=== PATIENT | male | born 1970 | race Caucasian/White ===

== ENCOUNTER 2017-12-01 11:29 | Emergency (ER) | payer BC ==
[2017-12-01] MEDS ORDERED: Sodium Chloride 0.9% 10 ML Syringe FLUSH PRN (11:50)
[2017-12-01] MEDS ORDERED: Morphine 2 MG/ML Syringe IVPUSH ONE (11:51)
[2017-12-01] MEDS ORDERED: Ketorolac 15 MG/ML SDV IVPUSH ONE (11:51)
[2017-12-01] MEDS ORDERED: Sodium Chloride 0.9% 1,000 ML IV ONE (11:51)
[2017-12-01] MEDS ORDERED: LORazepam 2 MG/ML SDV IVPUSH ONE (11:52)
[2017-12-01] MEDS ORDERED: Ondansetron 4 MG/2 ML SDV IVPUSH ONE (11:53)
[2017-12-01] MEDS ORDERED: methylPREDNISolone Sodium Succinate 125 MG/2 ML SDV IVPUSH ONE (12:24)
[2017-12-01 12:43] LABS: CHLORIDE,CL 106 mmol/L (98-107); SODIUM,NA 142 mmol/L (136-145)
[2017-12-01] MEDS: Lidocaine 2% 10 ML Amp INJECT ONE ×2 (12:57→13:24)
[2017-12-01] MEDS ORDERED: methylPREDNISolone Sodium Succinate 40 MG/1 ML SDV IM ONE (13:13)
[2017-12-01] MEDS ORDERED: Bupivacaine 0.5% 30 ML SDV INJECT PRN (13:16)
[2017-12-01] MEDS ORDERED: Take Home: Cyclobenzaprine 10 MG Tab, 4 Tab Pack PO ONE (15:14)
--- NOTE | 2017-12-01 15:24 | EDM.PDOC ---
ED HPI GENERAL MEDICAL PROBLEM - General Chief Complaint: Back Pain or Injury Stated Complaint: HURT BACK Time Seen by Provider: 12/01/17 11:49 Source of Information: Reports: Patient History Limitations: Reports: No Limitations - History of Present Illness INITIAL COMMENTS - FREE TEXT/NARRATIVE: Patient reports back and shoulder pain radiating down his right arm that started on Saturday night. He does do some work with ranching and farming, though he does not remember doing anything in particular that suddenly caused pain or injury. He has been treating with ibuprofen and tylenol but today the pain and spasms were not tolerable. No radiculopathy. No other complaints today. Denies chest pain, headache, shortness or breath, nausea or vomiting, abdominal pain or blood in urine or stool. Limited range of motion to the right shoulder. Severe spasming to the trapezius muscle Onset: Gradual Onset Date: 11/29/17 Duration: Getting Worse, Intermittent Location: Reports: Back, Upper Extremity, Right Quality: Reports: Ache, Sharp Severity: Severe Improves with: Reports: Heat Therapy Worsens with: Reports: Movement Associated Symptoms: Reports: No Other Symptoms Back/Neck Spasms Pain Score (Numeric/FACES): 8 - Related Data Allergies Allergy/AdvReac Type Severity Reaction Status Date / Time clindamycin Allergy Anaphylactic Verified 12/01/17 12:27 Shock Penicillins Allergy Anaphylactic Verified 12/01/17 12:27 Shock Home Meds: Home Meds Diazepam [Valium] 5 mg PO TID #10 tab 12/01/17 [Rx] Venlafaxine HCl [Venlafaxine ER] 37.5 mg PO DAILY 12/01/17 [History] Venlafaxine HCl [Venlafaxine ER] 75 mg PO DAILY 12/01/17 [History] ED ROS GENERAL - Review of Systems Review Of Systems: See Below Constitutional: Reports: No Symptoms HEENT: Reports: No Symptoms Respiratory: Reports: No Symptoms Cardiovascular: Reports: No Symptoms Endocrine: Reports: No Symptoms GI/Abdominal: Reports: No Symptoms : Reports: No Symptoms Musculoskeletal: Reports: Arm Pain, Back Pain, Hand Pain Skin: Reports: No Symptoms Neurological: Reports: No Symptoms Psychiatric: Reports: No Symptoms Hematologic/Lymphatic: Reports: No Symptoms Immunologic: Reports: No Symptoms ED EXAM, UPPER BACK/NECK PAIN - Physical Exam Exam: See Below Exam Limited By: No Limitations General Appearance: Alert, WD/WN, Moderate Distress Head Exam: Atraumatic, Normocephalic Cardiovascular/Respiratory: Regular Rate, Rhythm, No M/R/G, Normal Peripheral Pulses, No JVD, Normal Breath Sounds, No Respiratory Distress GI/Abdominal: Normal Bowel Sounds, Soft, Non-Tender, No Organomegaly, No Distention, No Abnormal Bruit, No Mass Extremities: No Pedal Edema, Normal Capillary Refill, Arm Pain (mid to upper back and arm painful. direct pressure to site increases the pain on palpation.) , Limited Range of Motion Neurologic: internal audit consultant II-XII nml As Tested, No Motor/Sensory Deficits, Alert, Normal Mood/Affect, Oriented x 3 Course - Vital Signs Last Recorded V/S: Last Vital Signs Temp 36.0 C 12/01/17 11:30 Pulse 111 H 12/01/17 11:30 Resp 16 12/01/17 11:30 BP 157/78 H 12/01/17 11:30 Pulse Ox 94 L 12/01/17 11:30 - Orders/Labs/Meds Orders: Active Orders 24 hr Category Date Time Status Shoulder Comp Rt [CR] Stat Exams 12/01/17 11:50 Taken Thoracic Spine 2V [CR] Stat Exams 12/01/17 11:50 Taken Saline Lock Insert [OM.PC] Routine Oth 12/01/17 11:50 Ordered Labs: Laboratory Tests 12/01/17 Range/Units 12:15 Sodium 142 (136-145) mmol/L Potassium 3.8 (3.5-5.1) mmol/L Chloride 106 (98-107) mmol/L Carbon Dioxide 25 (21-32) mmol/L Anion Gap 14.8 (10-20) mmol/L BUN 20 H (7-18) mg/dL Creatinine 1.3 (0.70-1.30) mg/dL Est Cr Clr Drug Dosing TNP Estimated GFR (MDRD) 60 Glucose 118 H (74-106) mg/dL Calcium 8.9 (8.5-10.1) mg/dL Corrected Calcium 8.82 (8.5-10.1) mg/dL Magnesium 2.3 (1.8-2.4) mg/dL Total Bilirubin 0.6 (0.2-1.0) mg/dL AST 21 (15-37) U/L ALT 40 (16-63) U/L Alkaline Phosphatase 81 (46-116) U/L Total Protein 7.5 (6.4-8.2) g/dL Albumin 4.1 (3.4-5.0) g/dL Globulin 3.4 Albumin/Globulin Ratio 1.21 Meds: Medications Discontinued Medications Generic Name Dose Route Start Last Admin Trade Name Freq PRN Reason Stop Dose Admin Bupivacaine HCl 30 ml 12/01/17 13:16 12/01/17 13:27 Marcaine 0.5% INJECT 30 ml ASDIRECTED PRN Administration Other Cyclobenzaprine HCl 1 packet 12/01/17 15:14 12/01/17 15:33 Take Home: Cyclobenzaprine 10 Mg, 4 Tab Pack PO 12/01/17 15:15 1 packet ONETIME ONE Administration Diazepam 5 mg 12/01/17 13:33 12/01/17 13:37 Valium IVPUSH 12/01/17 13:34 5 mg STAT ONE Administration Diazepam Confirm 12/01/17 15:32 12/01/17 15:33 Valium. Administered 12/01/17 15:33 25 mg Dose Administration 25 mg .ROUTE .STK-MED ONE Sodium Chloride 1,000 mls @ 999 mls/hr 12/01/17 11:51 12/01/17 12:08 Normal Saline IV 12/01/17 12:51 999 mls/hr ONETIME ONE Administration Ketorolac Tromethamine 15 mg 12/01/17 11:51 12/01/17 12:06 Toradol IVPUSH 12/01/17 11:52 15 mg ONETIME ONE Administration Lidocaine HCl 10 ml 12/01/17 12:25 12/01/17 13:24 Xylocaine-Mpf 2% (Sterile-Horace) INJECT 12/01/17 12:26 Not Given ONETIME ONE Lorazepam 1 mg 12/01/17 11:52 12/01/17 12:10 Ativan IVPUSH 12/01/17 11:53 1 mg ONETIME ONE Administration Methylprednisolone Sodium Succinate 125 mg 12/01/17 12:24 12/01/17 12:55 Solu-Medrol IVPUSH 12/01/17 12:25 125 mg ONETIME ONE Administration Methylprednisolone Sodium Succinate 40 mg 12/01/17 13:13 12/01/17 13:27 Solu-Medrol IM 12/01/17 13:14 40 mg ONETIME ONE Administration Morphine Sulfate 2 mg 12/01/17 11:51 12/01/17 12:08 Morphine IVPUSH 12/01/17 11:52 2 mg ONETIME ONE Administration Ondansetron HCl 4 mg 12/01/17 11:53 12/01/17 12:03 Zofran IVPUSH 12/01/17 11:54 4 mg ONETIME ONE Administration Sodium Chloride 10 ml 12/01/17 11:50 Saline Flush FLUSH ASDIRECTED PRN Keep Vein Open Departure - Departure Time of Disposition: 15:41 Disposition: Home, Self-Care 01 Condition: Good Clinical Impression: Muscle spasms of neck - Discharge Information Prescriptions: Diazepam [Valium] 5 mg PO TID #10 tab Instructions: Muscle Strain, Glpe-ed-Pdpb, Back Pain, Adult, [id number] Referrals: Mely Diaz MD [Primary Care Provider] - Forms: ED Department Discharge Additional Instructions: Stay well hydrated. Follow up in clinic with further spasms. I will give you some Valium and Flexeril to see which provides you more relief. Your labs were all within normal with the exception of higher glucose of 119 and a slightly elevated BUN As always call with any questions or concerns. - Problem List & Annotations (1) Muscle spasms of neck SNOMED Code(s): 126102633175 Code(s): M62.838 - OTHER MUSCLE SPASM Status: Acute Priority: Medium - Problem List Review Problem List Initiated/Reviewed/Updated: Yes - My Orders Last 24 Hours: My Active Orders 12/01/17 11:50 Shoulder Comp Rt [CR] Stat Thoracic Spine 2V [CR] Stat Saline Lock Insert [OM.PC] Routine - Assessment/Plan Last 24 Hours: My Active Orders 12/01/17 11:50 Shoulder Comp Rt [CR] Stat Thoracic Spine 2V [CR] Stat Saline Lock Insert [OM.PC] Routine Assessment:: neck and mid thoracic muscle spasms Plan: Stay well hydrated. Follow up in clinic with further spasms. I will give you some Valium and Flexeril to see which provides you more relief. Your labs were all within normal with the exception of higher glucose of 119 and a slightly elevated BUN As always call with any questions or concerns.
[2017-12-01] MEDS ORDERED: Diazepam 5 MG Tab ONE (15:32)
== END 2017-12-01 15:41 | disposition home or self-care (01) ==
LOC: VM.ED 11:29
DX: M62.830 Muscle spasm of back (principal); M62.838 Other muscle spasm; Z88.1 Allergy status to other antibiotic agents; Z88.0 Allergy status to penicillin
CPT/HCPCS: 36415; 72070; 73030; 80053; 83735; 96365; 96375; 99284; A9270; J1885; J2060; J2270; J2405; J2920; J2930; J3360; J7030

== ENCOUNTER 2021-10-11 09:10 | Emergency (ER) | payer OTHER ==
[2021-10-11] MEDS ORDERED: Ondansetron 4 MG/2 ML SDV IVPUSH ONE (09:31)
[2021-10-11] MEDS ORDERED: Lactated Ringers 1,000 ML IV ONE (09:31)
[2021-10-11] MEDS ORDERED: Iopamidol 612 MG/ML 100 ML Bottle IVPUSH ONE (09:36)
[2021-10-11 10:02] LABS: CHLORIDE,CL 106 mmol/L (98-107); SODIUM,NA 141 mmol/L (136-145)
[2021-10-11 10:04] LABS: ANION GAP 16.7 mmol/L (5-15)
[2021-10-11 10:41] LABS: CORONAVIRUS COVID-19 NAA NEGATIVE (NEGATIVE)
[2021-10-11] MEDS ORDERED: Take Home: Ondansetron 4 MG Tab.DIS, 5 Tab Pack PO ONE (11:21)
== END 2021-10-11 11:36 | disposition home or self-care (01) ==
LOC: VM.ED 09:10
DX: K52.9 Noninfective gastroenteritis and colitis, unspecified (principal); Z88.1 Allergy status to other antibiotic agents; Z88.0 Allergy status to penicillin; Z20.822 Contact with and (suspected) exposure to COVID-19
CPT/HCPCS: 0240U; 74177; 80053; 81003; 82150; 83690; 85025; 86140; 96374; 99284; 99284-25; J2405; J7120; Q0162; Q9967

== ENCOUNTER 2023-05-23 06:35 | Emergency (ER) | payer OTHER ==
[2023-05-23] MEDS ORDERED: Naloxone 0.4 MG/ML SDV IVPUSH PRN (06:58)
[2023-05-23] MEDS ORDERED: Sodium Chloride 0.9% 1,000 ML IV ONE (06:58)
[2023-05-23] MEDS ORDERED: Ondansetron 4 MG/2 ML SDV IVPUSH ONE ×2 (06:58→07:40)
[2023-05-23] MEDS ORDERED: HYDROmorphone 1 MG/ML Syringe IVPUSH ONE (06:58)
[2023-05-23] MEDS ORDERED: HYDROmorphone 1 MG/ML Syringe ONE (07:09)
[2023-05-23 07:10] LABS: BASOPHILS PERCENT AUTO 0.2 % (0.2-1.2); EOSINOPHILS ABSOLUTE AUTO 0.2 x10^3/uL (0.0-0.5); EOSINOPHILS PERCENT AUTO 2.4 % (0.0-4.0); HEMATOCRIT 44.4 % (40.0-52.0); HEMOGLOBIN 15.5 g/dL (14.0-18.0); IMMATURE GRAN ABSOLUTE AUTO 0.01 x10^3/uL (0.00-0.07); LYMPHOCYTES ABSOLUTE AUTO 1.7 x10^3/uL (1.0-4.8); LYMPHOCYTES PERCENT AUTO 19.8 % (25.0-50.0); MEAN CORPUSCULAR HEMOGLOBIN 30.2 pg (26.0-32.0); MEAN CORPUSCULAR HGB CONC 34.9 g/dL (32.0-36.0); MEAN CORPUSCULAR VOLUME 86.5 fL (78.0-93.0); MONOCYTES ABSOLUTE AUTO 0.6 x10^3/uL (0.0-0.8); MONOCYTES PERCENT AUTO 6.3 % (2.0-11.0); NEUTROPHILS ABSOLUTE AUTO 6.3 x10^3/uL (1.8-7.7); NEUTROPHILS PERCENT AUTO 71.2 % (50.0-80.0); PLATELET COUNT,PLT 255 x10^3/uL (130-400); RED BLOOD CELL COUNT 5.13 x10^6/uL (4.5-6.0); WHITE BLOOD CELL COUNT,WBC 8.8 x10^3/uL (4.0-10.0)
[2023-05-23 07:28] LABS: ALBUMIN 3.7 g/dL (3.4-5.0); BILIRUBIN TOTAL 0.4 mg/dL (0.2-1.0); C-REACTIVE PROTEIN 1.02 mg/dL (<=0.50); CALCIUM 9.2 mg/dL (8.5-10.1); CREATININE 1.2 mg/dL (0.70-1.30); EST CRCL DRUG DOSING (CG) 72.83 mL/min; POTASSIUM,K 3.6 mmol/L (3.5-5.1); PROTEIN TOTAL,TP 7.4 g/dL (6.4-8.2)
[2023-05-23 07:33] LABS: ANION GAP 10.6 mmol/L (5-15)
[2023-05-23] MEDS ORDERED: Iopamidol 612 MG/ML 100 ML Bottle IVPUSH ONE (07:58)
[2023-05-23] MEDS ORDERED: fentaNYL 50 MCG/ML SDV IVPUSH ONE (08:13)
[2023-05-23] MEDS ORDERED: Take Home: Acetaminophen/HYDROcodone 325-5 MG, 5 Tab Pack PO ONE (09:04)
[2023-05-23] MEDS ORDERED: Take Home: Ondansetron 4 MG Tab.DIS, 5 Tab Pack PO ONE (09:04)
== END 2023-05-23 09:20 | disposition home or self-care (01) ==
LOC: VM.ED 06:35
DX: R10.31 Right lower quadrant pain (principal); Z88.0 Allergy status to penicillin; Z88.1 Allergy status to other antibiotic agents
CPT/HCPCS: 74177; 80053; 83690; 85025; 86140; 96361; 96374; 96375; 96376; 99284; 99284-25; A9270-GY; J1170; J2405; J3010; J7030; Q0162; Q9967